=== PATIENT | female | born 1975 | race Caucasian/White ===

== ENCOUNTER 2020-10-09 00:59 | Emergency (ER) | payer OTHER ==
--- NOTE | 2020-10-09 01:27 | ED ---
Chest Pain HPI - General Chief Complaint: Chest Pain Stated Complaint: Chest Tightness/Back Pain Time Seen by Provider: 10/09/20 01:12 Source: patient, family Mode of arrival: ambulatory Limitations: no limitations - History of Present Illness Initial Comments: This patient is a 45-year-old woman who presents to be evaluated for substernal chest pain that woke her from sleep tonight. Patient denies known history of coronary artery/heart disease. She had gone to bed feeling well and then woke up approximately 2 hours ago with substernal chest pain. The symptoms have resolved now. She had not noted any associated symptoms, no dyspnea, diaphoresis, nausea or vomiting, palpitations, lightheadedness or syncope. MD Complaint: chest pain -: hour(s) Onset: awoke with symptoms Pain Location: substernal Pain Radiation: none Quality: tightness Consistency: constant Improves With: nothing Worsens With: nothing Treatments Prior to Arrival: none - Related Data Previous Rx's Medication Instructions Recorded Naproxen Sodium [Anaprox Ds] 550 mg PO Q12HR #20 tab 05/25/14 Allergies Allergy/AdvReac Type Severity Reaction Status Date / Time No Known Allergies Allergy Verified 10/09/20 01:04 Review of Systems ROS Statement: Those systems with pertinent positive or pertinent negative responses have been documented in the HPI. ROS Other: All systems not noted in ROS Statement are negative. Constitutional: Denies: fever, chills Respiratory: Denies: cough, dyspnea Cardiovascular: Reports: chest pain. Denies: palpitations, dyspnea on exertion, orthopnea, edema, syncope Gastrointestinal: Denies: abdominal pain, nausea, vomiting Genitourinary: Denies: dysuria, hematuria Musculoskeletal: Denies: back pain Skin: Denies: rash Neurological: Denies: headache, weakness, numbness EKG Findings - EKG Results: EKG: interpreted by ERMD, sinus rhythm (Rate 98), normal axis, normal ST/T - Blocks, [place], Hypertrophy, ST Abn: AV and intraventricular conduction: left posterior fascicular block Past Medical History Additional Past Medical History / Comment(s): kidney stones, miscarriage, History of Any Multi-Drug Resistant Organisms: None Reported Past Surgical History: No Surgical Hx Reported Additional Past Surgical History / Comment(s): D&C Past Psychological History: No Psychological Hx Reported Smoking Status: Never smoker Past Alcohol Use History: None Reported Past Drug Use History: None Reported General Exam Limitations: no limitations General appearance: alert, in no apparent distress Head exam: Present: atraumatic, normocephalic Eye exam: Present: normal appearance. Absent: scleral icterus, conjunctival injection ENT exam: Present: normal oropharynx Neck exam: Present: normal inspection Respiratory exam: Present: normal lung sounds bilaterally. Absent: respiratory distress, wheezes, rales, rhonchi, stridor Cardiovascular Exam: Present: regular rate, normal rhythm, normal heart sounds. Absent: systolic murmur, diastolic murmur, rubs, gallop GI/Abdominal exam: Present: soft. Absent: distended, tenderness, guarding, rebound, rigid, mass Extremities exam: Present: normal inspection, normal capillary refill. Absent: pedal edema, calf tenderness Back exam: Present: normal inspection. Absent: CVA tenderness (R), CVA tenderness (L) Neurological exam: Present: alert Skin exam: Present: warm, dry, intact, normal color. Absent: rash Course Vital Signs 10/09/20 10/09/20 10/09/20 01:01 01:30 02:30 Temperature 97.7 F Pulse Rate 109 H 97 98 Respiratory 22 16 16 Rate Blood Pressure 163/92 167/92 163/79 O2 Sat by Pulse 97 97 98 Oximetry 10/09/20 03:45 Temperature 98.4 F Pulse Rate 96 Respiratory 16 Rate Blood Pressure 146/89 O2 Sat by Pulse 97 Oximetry Chest Pain MDM - [facility] Patient's 45-year-old woman with atypical chest pain. The workup is normal. Discussed admission for telemetry monitoring, serial cardiac enzymes, cardiology consultation, but this point the patient is feeling better and would like to go home. I discussed appropriate further care and follow-up as well as return parameters. Disposition Clinical Impression: Chest pain Disposition: HOME SELF-CARE Condition: Good Instructions (If sedation given, give patient instructions): Chest Pain (ED) Is patient prescribed a controlled substance at d/c from ED?: No Referrals: Stas Jeffers DO [Primary Care Provider] - 1-2 days
[2020-10-09 02:41] LABS: Basophils # (A) 0.1 k/uL (0-0.2); Basophils % (A) 1 %; Eosinophils # (A) 0.3 k/uL (0-0.7); Eosinophils % (A) 3 %; HCT 40.4 % (34.0-46.0); HGB 14.6 gm/dL (11.4-16.0); Lymphocytes # (A) 2.1 k/uL (1.0-4.8); Lymphocytes % (A) 22 %; MCH 33.2 pg (25.0-35.0); MCHC 36.2 g/dL (31.0-37.0); MCV 91.5 fL (80.0-100.0); Mean Platelet Volume 9.1; Monocytes # (A) 0.4 k/uL (0-1.0); Monocytes % (A) 4 %; Neutrophils # (A) 6.8 k/uL (1.3-7.7); Neutrophils % (A) 69 %; Platelet Count 233 k/uL (150-450); RBC 4.41 m/uL (3.80-5.40); RDW 12.8 % (11.5-15.5); WBC 9.9 k/uL (3.8-10.6)
[2020-10-09 02:50] LABS: ALT 11 U/L (4-34); AST 24 U/L (14-36); African American GFR (CKD) >90 (>60 ml/min/1.73 sqM); Albumin 4.2 g/dL (3.5-5.0); Alkaline Phosphatase 87 U/L (38-126); Amylase 48 U/L (30-110); Anion Gap 10 mmol/L; Blood Urea Nitrogen 14 mg/dL (7-17); Carbon Dioxide 25 mmol/L (22-30); Chloride 104 mmol/L (98-107); Glucose 110 mg/dL (74-99); Lipase 231 U/L (23-300); Magnesium 1.8 mg/dL (1.6-2.3); Non-African American GFR(CKD) >90 (>60 ml/min/1.73 sqM); Potassium 3.8 mmol/L (3.5-5.1); Sodium 139 mmol/L (137-145); Total Bilirubin 0.2 mg/dL (0.2-1.3); Total Protein 6.8 g/dL (6.3-8.2)
--- NOTE | 2020-10-09 02:53 | XR ---
EXAMINATION TYPE: XR chest 2V DATE OF EXAM: 10/09/2020 COMPARISON: NONE HISTORY: Chest pain TECHNIQUE: 2 views FINDINGS: Heart and mediastinum are normal. Lungs are clear. Diaphragm is normal. Bony thorax is inta ct. There are chest leads. IMPRESSION: Normal chest.
[2020-10-09 02:58] LABS: D-Dimer 0.18 mg/L FEU (<0.60); INR 0.9 (<1.2); Prothrombin Time 10.1 sec (9.0-12.0)
[2020-10-09 02:59] LABS: Partial Thromboplastin Time 23.6 sec (22.0-30.0)
[2020-10-09 03:52] VITALS: BP 146/89; PULSE 96; RESP 16; TEMP 98.4
== END 2020-10-09 03:45 | disposition home or self-care (01) ==
LOC: EC 00:59
DX: R07.2 Precordial pain (principal); Z87.442 Personal history of urinary calculi
CPT/HCPCS: 36415; 71046; 80053; 82150; 83690; 83735; 84484; 85025; 85379; 85610; 85730; 93005; 99285

== ENCOUNTER → 2022-11-23 | Outpatient (CLI) | payer OTHER ==
--- NOTE | 2022-11-28 07:58 | MM ---
Reason for Exam: Screening (asymptomatic). Last mammogram was performed 3 year(s) and 11 month(s) ago. Patient History: Menarche at age 14. First Full-Term at age 33. Late child-bearing (after 32). Patient has history of breast feeding. Patient used Hormonal Contraceptives for 2 years. Last menstrual period: 11/08/2022 Risk Values: Jeannette 5 year model risk: 1.1%. NCI Lifetime model risk: 13.0%. Prior Study Comparison: 12/11/2018 Bilateral Screening Mammogram, [facility]. Tissue Density: The breast tissue is heterogeneously dense. This may lower the sensitivity of mammography. Findings: Analyzed By CAD. There is no suspicious group of microcalcifications or new suspicious mass in either breast. Overall Assessment: Benign, BI-RAD 2 Management: Screening Mammogram of both breasts in 1 year. . Patient should continue monthly self-breast exams. A clinical breast exam by your physician is recommended on an annual basis. This exam should not preclude additional follow-up of suspicious palpable abnormalities. Note on Jeannette scores and lifetime risk: 1. A Jeannette score greater than 3% is considered moderate risk. If this is the case, consider specialist referral to assess eligibility for a risk reducing agent. 2. If overall lifetime risk for the development of breast cancer is 20% or higher, the patient may qualify for future screening with alternating mammogram and breast MRI. Electronically signed and approved by: Tutu Howell M.D. Radiologis
== END | disposition home or self-care (01) ==
LOC: RADMAMWWP 13:12
PROVIDERS: ATTEND Family Medicine
DX: Z12.31 Encounter for screening mammogram for malignant neoplasm of breast (principal)
CPT/HCPCS: 77063; 77067

== ENCOUNTER 2023-10-16 14:16 | Emergency (ER) | payer OTHER ==
[2023-10-16 14:22] VITALS: RESP 18
--- NOTE | 2023-10-16 14:44 | ED ---
General Adult HPI - General Source: patient, RN notes reviewed Mode of arrival: wheelchair Limitations: no limitations <Lizbeth Case - Last Filed: 10/16/23 14:42> <Oneal Phelan - Last Filed: 10/16/23 17:51> - General Chief complaint: Recheck/Abnormal Lab/Rx Stated complaint: Dizziness, Left side tingiling/numbness Time Seen by Provider: 10/16/23 14:42 - History of Present Illness Initial comments: Quick Note: This is a 48-year-old female who presents to the emergency department for facial numbness and hypertension. Patient states that her blood pressure was very high this morning so she took an extra dose of losartan. Shortly before arrival she started to notice that the left side of her face felt numb and tingly as did the left side of her arm. She did not notice any weakness, difficulty speaking, or other symptoms associated with the tingling. Denies any history of strokes. (Lizbeth Case) - Related Data Previous Rx's Medication Instructions Recorded Naproxen Sodium [Anaprox Ds] 550 mg PO Q12HR #20 tab 05/25/14 Allergies Allergy/AdvReac Type Severity Reaction Status Date / Time No Known Allergies Allergy Verified 10/16/23 14:22 Review of Systems ROS Other: All systems not noted in ROS Statement are negative. <Lizbeth Case - Last Filed: 10/16/23 14:42> ROS Other: All systems not noted in ROS Statement are negative. <Oneal Phelan - Last Filed: 10/16/23 17:51> ROS Statement: Those systems with pertinent positive or pertinent negative responses have been documented in the HPI. Past Medical History Additional Past Medical History / Comment(s): kidney stones, miscarriage, History of Any Multi-Drug Resistant Organisms: None Reported Past Surgical History: No Surgical Hx Reported Additional Past Surgical History / Comment(s): D&C Past Psychological History: No Psychological Hx Reported Smoking Status: Never smoker Past Alcohol Use History: None Reported Past Drug Use History: None Reported <Lizbeth Case - Last Filed: 10/16/23 14:42> General Exam Limitations: no limitations <Lizbeth Case - Last Filed: 10/16/23 14:42> - General Exam Comments Initial Comments: Visual Physical Exam Vital signs reviewed General: Well-appearing, nontoxic, no acute distress. Head: Normocephalic, atraumatic Eyes: PERRLA, EOMI ENT: Airway patent Chest: Nonlabored breathing Skin: No visual rash, normal skin tone Neuro: Alert and oriented 3 Musculoskeletal: No gross abnormalities (Lizbeth Case) Course Vital Signs 10/16/23 14:20 Temperature 98 F Pulse Rate 101 H Respiratory 18 Rate Blood Pressure 173/108 O2 Sat by Pulse 100 Oximetry Medical Decision Making <Lizbeth Case - Last Filed: 10/16/23 14:42> - Lab Data Result diagrams: 10/16/23 14:48 10/16/23 14:48 <Oneal Phelan - Last Filed: 10/16/23 17:51> - Medical Decision Making I performed the QuickNote portion of this chart. Signed Lizbeth Case PA-C. (Lizbeth Case) - Lab Data Lab Results 10/16/23 10/16/23 10/16/23 Range/Units 14:48 14:48 14:48 WBC 8.7 (3.8-10.6) k/uL RBC 4.14 (3.80-5.40) m/uL Hgb 13.6 (11.4-16.0) gm/dL Hct 40.5 (34.0-46.0) % MCV 97.7 (80.0-100.0) fL MCH 32.7 (25.0-35.0) pg MCHC 33.5 (31.0-37.0) g/dL RDW 13.0 (11.5-15.5) % Plt Count 249 (150-450) k/uL MPV 8.5 Neutrophils % 65 % Lymphocytes % 24 % Monocytes % 4 % Eosinophils % 4 % Basophils % 1 % Neutrophils # 5.7 (1.3-7.7) k/uL Lymphocytes # 2.1 (1.0-4.8) k/uL Monocytes # 0.3 (0-1.0) k/uL Eosinophils # 0.4 (0-0.7) k/uL Basophils # 0.1 (0-0.2) k/uL PT 10.4 (10.0-12.5) sec INR 0.9 (<1.2) APTT 25.5 (22.0-30.0) sec Sodium 138 (137-145) mmol/L Potassium 4.1 (3.5-5.1) mmol/L Chloride 106 (98-107) mmol/L Carbon Dioxide 24 (22-30) mmol/L Anion Gap 8 mmol/L BUN 13 (7-17) mg/dL Creatinine 0.62 (0.52-1.04) mg/dL Est GFR (CKD-EPI)AfAm >90 (>60 ml/min/1.73 sqM) Est GFR (CKD-EPI)NonAf >90 (>60 ml/min/1.73 sqM) Glucose 102 H (74-99) mg/dL Calcium 9.2 (8.4-10.2) mg/dL Total Bilirubin 0.5 (0.2-1.3) mg/dL AST 36 (14-36) U/L ALT 14 (4-34) U/L Alkaline Phosphatase 91 (38-126) U/L Creatine Kinase 102 (30-135) U/L Troponin I (0.000-0.034) ng/mL Total Protein 7.0 (6.3-8.2) g/dL Albumin 4.3 (3.5-5.0) g/dL 10/16/23 Range/Units 14:48 WBC (3.8-10.6) k/uL RBC (3.80-5.40) m/uL Hgb (11.4-16.0) gm/dL Hct (34.0-46.0) % MCV (80.0-100.0) fL MCH (25.0-35.0) pg MCHC (31.0-37.0) g/dL RDW (11.5-15.5) % Plt Count (150-450) k/uL MPV Neutrophils % % Lymphocytes % % Monocytes % % Eosinophils % % Basophils % % Neutrophils # (1.3-7.7) k/uL Lymphocytes # (1.0-4.8) k/uL Monocytes # (0-1.0) k/uL Eosinophils # (0-0.7) k/uL Basophils # (0-0.2) k/uL PT (10.0-12.5) sec INR (<1.2) APTT (22.0-30.0) sec Sodium (137-145) mmol/L Potassium (3.5-5.1) mmol/L Chloride (98-107) mmol/L Carbon Dioxide (22-30) mmol/L Anion Gap mmol/L BUN (7-17) mg/dL Creatinine (0.52-1.04) mg/dL Est GFR (CKD-EPI)AfAm (>60 ml/min/1.73 sqM) Est GFR (CKD-EPI)NonAf (>60 ml/min/1.73 sqM) Glucose (74-99) mg/dL Calcium (8.4-10.2) mg/dL Total Bilirubin (0.2-1.3) mg/dL AST (14-36) U/L ALT (4-34) U/L Alkaline Phosphatase (38-126) U/L Creatine Kinase (30-135) U/L Troponin I <0.012 (0.000-0.034) ng/mL Total Protein (6.3-8.2) g/dL Albumin (3.5-5.0) g/dL Disposition <Lizbeth Case - Last Filed: 10/16/23 14:42> Is patient prescribed a controlled substance at d/c from ED?: No Time of Disposition: 17:50 <Oneal Phelan - Last Filed: 10/16/23 17:51> Clinical Impression: Hypertension, Paresthesia Disposition: HOME SELF-CARE Condition: Good Instructions (If sedation given, give patient instructions): Hypertension (ED) Referrals: Stas Jeffers DO [Primary Care Provider] - 1-2 days
[2023-10-16 15:12] LABS: Basophils # (A) 0.1 k/uL (0-0.2); Basophils % (A) 1 %; Eosinophils # (A) 0.4 k/uL (0-0.7); Eosinophils % (A) 4 %; HCT 40.5 % (34.0-46.0); HGB 13.6 gm/dL (11.4-16.0); Lymphocytes # (A) 2.1 k/uL (1.0-4.8); Lymphocytes % (A) 24 %; MCH 32.7 pg (25.0-35.0); MCHC 33.5 g/dL (31.0-37.0); MCV 97.7 fL (80.0-100.0); Mean Platelet Volume 8.5; Monocytes # (A) 0.3 k/uL (0-1.0); Monocytes % (A) 4 %; Neutrophils # (A) 5.7 k/uL (1.3-7.7); Neutrophils % (A) 65 %; Platelet Count 249 k/uL (150-450); RBC 4.14 m/uL (3.80-5.40); WBC 8.7 k/uL (3.8-10.6)
[2023-10-16 15:19] LABS: INR 0.9 (<1.2); Partial Thromboplastin Time 25.5 sec (22.0-30.0); Prothrombin Time 10.4 sec (10.0-12.5)
[2023-10-16 15:23] LABS: ALT 14 U/L (4-34); AST 36 U/L (14-36); African American GFR (CKD) >90 (>60 ml/min/1.73 sqM); Albumin 4.3 g/dL (3.5-5.0); Alkaline Phosphatase 91 U/L (38-126); Anion Gap 8 mmol/L; Blood Urea Nitrogen 13 mg/dL (7-17); Calcium 9.2 mg/dL (8.4-10.2); Carbon Dioxide 24 mmol/L (22-30); Chloride 106 mmol/L (98-107); Creatine Kinase 102 U/L (30-135); Glucose 102 mg/dL (74-99); Non-African American GFR(CKD) >90 (>60 ml/min/1.73 sqM); Potassium 4.1 mmol/L (3.5-5.1); Sodium 138 mmol/L (137-145); Total Bilirubin 0.5 mg/dL (0.2-1.3)
--- NOTE | 2023-10-16 15:43 | XR ---
EXAMINATION TYPE: XR chest 2V DATE OF EXAM: 10/16/2023 COMPARISON: 10/09/2020 INDICATION: Altered mental status left-sided tingling TECHNIQUE: Frontal and lateral views of the chest are obtained. FINDINGS: The heart size is normal. The pulmonary vasculature is normal. The lungs are clear. IMPRESSION: 1. No acute pulmonary process.
--- NOTE | 2023-10-16 15:58 | CT ---
EXAMINATION TYPE: CT brain wo con CT DLP: 1164.4 mGycm, Automated exposure control for dose reduction was used. DATE OF EXAM: 10/16/2023 3:48 PM COMPARISON: None. CLINICAL INDICATION:Female, 48 years old with history of Facial numbness, Facial numbness and high bl ood pressure TECHNIQUE: Brain: Axial CT images of the brain were obtained with coronal and sagittal reformats created and rev iewed. Contrast used: None. Oral contrast used: None. FINDINGS: Brain: Extra-axial spaces: No abnormal extra-axial fluid collections. Ventricular system: Within normal limits Cerebral parenchyma: No acute intraparenchymal hemorrhage or mass effect. The madison-white junction is well differentiated. Cerebellum: Unremarkable. Mass effect: No evidence of midline shift. Intracranial vasculature: unremarkable Soft tissues: Normal. Calvarium/osseous structures: No depressed skull fracture. Paranasal sinuses and mastoid air cells: Mild scattered paranasal sinus disease. Visualized orbits: Orbital contents are intact. IMPRESSION: No acute intracranial process.
[2023-10-16] MEDS: cloNIDine HCL 0.1 MG TAB PO STA (18:16)
[2023-10-16] MEDS: amLODIPine 5 MG TAB PO STA (18:16)
[2023-10-16 18:18] VITALS: BP 153/91; PULSE 88; TEMP 98.1
== END 2023-10-16 18:20 | disposition home or self-care (01) ==
LOC: EC 14:16
DX: R20.2 Paresthesia of skin (principal); I10 Essential (primary) hypertension
CPT/HCPCS: 36415; 70450; 71046; 80053; 82550; 84484; 85025; 85610; 85730; 93005; 99284

== ENCOUNTER → 2023-11-02 | Outpatient (CLI) | payer OTHER ==
--- NOTE | 2023-11-02 16:29 | US ---
EXAMINATION TYPE: US transvaginal DATE OF EXAM: 11/02/2023 COMPARISON: NONE CLINICAL INDICATION: Female, 48 years old with history of N94.6 DYSMENORRHEA; Irregular menses. TECHNIQUE: Transvaginal (TV) Date of LMP: 10/13/2023 EXAM MEASUREMENTS: Uterus: 10.0 x 6.5 x 5.6 cm Endometrial Stripe: 2.1 cm Right Ovary: 6.4 x 4.9 x 4.6 cm Left Ovary: 4.1 x 3.4 x 3.1 cm 1. Uterus: Anteverted Upper limits of normal in size. Heterogenous. Two right hypoechoic lesions , 1- 1.3 x 1.3 x 1.5 cm and 2- 1.5 x 1.3 x 1.2 cm 2. Endometrium: Thickened. Heterogenous. 3. Right Ovary: Simple cyst - 5.6 x 4.5 x 4.1 cm 4. Left Ovary: Simple cyst - 2.8 x 2.0 x 2.8 cm 5. Bilateral Adnexa: no free fluid 6. Posterior cul-de-sac: no free fluid Anteverted uterus with heterogenous appearance. There are 2 right hypoechoic lesions most consistent with intramural fibroids. Heterogenous thickened endometrium identified without internal color flow. Bilateral ovarian simple cysts identified. Largest is in the right ovary measured 5.6 cm. No free flu id. IMPRESSION: 1. Thickened endometrium. Etiologies include endometrial hyperplasia versus carcinoma versus polyp ve rsus fibroid versus other. Direct visualization is recommended. 2. Fibroid changes of the uterus. 3. Bilateral simple ovarian cysts with largest in the right ovary measuring up to 5.6 cm.
== END | disposition home or self-care (01) ==
LOC: RADUSWWP 15:07
PROVIDERS: ATTEND Family Medicine
DX: N94.6 Dysmenorrhea, unspecified (principal); R93.89 Abnormal findings on diagnostic imaging of other specified body structures; D25.9 Leiomyoma of uterus, unspecified; N83.201 Unspecified ovarian cyst, right side; N83.202 Unspecified ovarian cyst, left side
CPT/HCPCS: 76830

== ENCOUNTER → 2023-11-20 | Outpatient (CLI) | payer OTHER | END | disposition home or self-care (01) | LOC: LABPRL 09:55 | PROVIDERS: ATTEND Family Medicine | DX: Z00.00 Encounter for general adult medical examination without abnormal findings (principal); I10 Essential (primary) hypertension; E55.9 Vitamin D deficiency, unspecified | CPT/HCPCS: 80053; 80061; 82306; 83036; 84439; 84443; 85025 ==

== ENCOUNTER 2023-12-04 10:37 | Emergency (ER) | payer OTHER ==
[2023-12-04 10:41] VITALS: TEMP 98
--- NOTE | 2023-12-04 11:07 | ED ---
Female Urogenital HPI - General Chief complaint: Vaginal Bleeding Stated complaint: Vaginal bleeding Time Seen by Provider: 12/04/23 11:04 Source: patient, RN notes reviewed Mode of arrival: ambulatory Limitations: no limitations - History of Present Illness Initial comments: 48-year-old female presenting with vaginal bleeding x 1 day. States she has had issues with heavy vaginal bleeding on menstrual cycle for several months. She had an ultrasound of the pelvis last month which revealed a thickened uterine lining. She has upcoming appointment with PROJECT COORDINATOR in December for D&C. States she had similar issues 2 years ago and had D&C done at this time. Denies blood thinners. Admits some mild abdominal cramping, denies any other symptoms such a s lightheadedness, nausea, vomiting, fever. - Related Data Previous Rx's Medication Instructions Recorded Naproxen Sodium [Anaprox Ds] 550 mg PO Q12HR #20 tab 05/25/14 amLODIPine [Norvasc] 5 mg PO DAILY #30 tab 10/16/23 Allergies Allergy/AdvReac Type Severity Reaction Status Date / Time No Known Allergies Allergy Verified 12/04/23 10:41 Review of Systems ROS Statement: Those systems with pertinent positive or pertinent negative responses have been documented in the HPI. ROS Other: All systems not noted in ROS Statement are negative. Past Medical History Additional Past Medical History / Comment(s): kidney stones, miscarriage, History of Any Multi-Drug Resistant Organisms: None Reported Past Surgical History: No Surgical Hx Reported Additional Past Surgical History / Comment(s): D&C Past Psychological History: No Psychological Hx Reported Smoking Status: Never smoker Past Alcohol Use History: None Reported Past Drug Use History: None Reported General Exam Limitations: no limitations General appearance: alert, in no apparent distress Head exam: Present: atraumatic, normocephalic, normal inspection Eye exam: Present: normal appearance, PERRL, EOMI, other (No pallor). Absent: scleral icterus, conjunctival injection, periorbital swelling Respiratory exam: Present: normal lung sounds bilaterally. Absent: respiratory distress, wheezes, rales, rhonchi, stridor Cardiovascular Exam: Present: regular rate, normal rhythm, normal heart sounds. Absent: systolic murmur, diastolic murmur, rubs, gallop, clicks GI/Abdominal exam: Present: soft, normal bowel sounds. Absent: distended, tenderness, guarding, rebound, rigid Extremities exam: Present: normal inspection, full ROM, normal capillary refill. Absent: tenderness, pedal edema, joint swelling, calf tenderness Neurological exam: Present: alert, oriented X3 Psychiatric exam: Present: normal affect, normal mood Skin exam: Present: warm, dry, intact, normal color. Absent: rash Course Vital Signs 12/04/23 12/04/23 10:38 12:14 Temperature 98 F Pulse Rate 131 H 96 Respiratory 18 16 Rate Blood Pressure 173/109 128/78 O2 Sat by Pulse 100 97 Oximetry Medical Decision Making - Medical Decision Making Was pt. sent in by a medical professional or institution (, PA, SCIENCE CONSULTANT, urgent care, hospital, or [facility]...) When possible be specific @ -No Did you speak to anyone other than the patient for history (EMS, parent, family, police, friend...)? What history was obtained from this source @ -No Did you review nursing and triage notes (agree or disagree)? Why? @ -I reviewed and agree with nursing and triage notes Were old charts reviewed (outside hosp., previous admission, EMS record, old EKG, old radiological studies, urgent care reports/EKG's, [facility] records)? Report findings @ -No old charts were reviewed Differential Diagnosis (chest pain, altered mental status, abdominal pain women, abdominal pain men, vaginal bleeding, weakness, fever, dyspnea, syncope, headache, dizziness, GI bleed, back pain, seizure, CVA, palpatations, mental health, musculoskeletal)? @ -Differential Vaginal Bleeding: Spontaneous , threatened , molar , ectopic , bloody show, incompetent cervix, abruptioplacenta, placenta previa, uterine rupture, dysfunctional uterine bleeding, hemorrhage, uterine fib roids, this is not meant to be an all-inclusive list. EKG interpreted by me (3pts min.). @ -None X-rays interpreted by me (1pt min.). @ -None done CT interpreted by me (1pt min.). @ -None done U/S interpreted by me (1pt. min.). @ -None done What testing was considered but not performed or refused? (CT, X-rays, U/S, labs)? Why? @ -Pelvic ultrasound not performed due to patient had pelvic ultrasound 1 month ago which revealed thickened endometrium What meds were considered but not given or refused? Why? @ -None Did you discuss the management of the patient with other professionals (professionals i.e. , PA, SCIENCE CONSULTANT, lab, RT, psych nurse, social welfare administrator, track coach, teacher, correction officer city or county jail, supportive employment case manager)? Give summary @ -No Was smoking cessation discussed for >3mins.? @ -No Was critical care preformed (if so, how long)? @ -No Were there social determinants of health that impacted care today? How? (Homelessness, low income, unemployed, alcoholism, drug addiction, transportation, low edu. Level, literacy, decrease access to med. care, long-term, rehab)? @ -No Was there de-escalation of care discussed even if they declined (Discuss DNR or withdrawal of care, Hospice)? DNR status @ -No What co-morbidities impacted this encounter? (DM, HTN, Smoking, COPD, CAD, Cancer, CVA, ARF, Chemo, Hep., AIDS, mental health diagnosis, sleep apnea, morbid obesity)? @ -None Was patient admitted / discharged? Hospital course, mention meds given and route, prescriptions, significant lab abnormalities, going to OR and other pertinent info. @ -Patient was discharged. Patient was seen and evaluated for vaginal bleeding x 1 day. Patient had pelvic ultrasound 1 month ago which revealed thickened endometrium, patient is scheduled for D&C next month. Patient is mildly tachycardic upon initial evaluation, however resolves upon reevaluatio. No acute distress. No abdominal tenderness to palpation. Hemoglobin is stable at 11.4. Urine negative. Discussed diagnosis of menorrhagia due to thickened endometrium. Discussed there are no signs of hemodynamic instability at this time, therefore I believe it is reasonable for patient to be discharged at this time with outpatient follow-up. Patient is agreeable to plan. Return parameters discussed. This was discussed with my ED attending Dr. Woodall. Undiagnosed new problem with uncertain prognosis? @ -No Drug Therapy requiring intensive monitoring for toxicity (Heparin, Nitro, Insulin, Cardizem)? @ -No Were any procedures done? @ -No Diagnosis/symptom? @ -Menorrhagia Acute, or Chronic, or Acute on Chronic? @ -Acute Uncomplicated (without systemic symptoms) or Complicated (systemic symptoms)? @ -Uncomplicated Side effects of treatment? @ -No Exacerbation, Progression, or Severe Exacerbation? @ -No Poses a threat to life or bodily function? How? (Chest pain, [place], [place], pneumonia, PE, COPD, DKA, ARF, appy, cholecystitis, CVA, Diverticulitis, Homicidal, Suicidal, threat to staff... and all critical care pts) @ -Not at this time - Lab Data Result diagrams: 12/04/23 11:11 12/04/23 11:11 Lab Results 12/04/23 12/04/23 12/04/23 Range/Units 11:11 11:11 11:11 WBC 9.4 (3.8-10.6) k/uL RBC 3.47 L (3.80-5.40) m/uL Hgb 11.4 (11.4-16.0) gm/dL Hct 33.2 L (34.0-46.0) % MCV 95.8 (80.0-100.0) fL MCH 32.9 (25.0-35.0) pg MCHC 34.4 (31.0-37.0) g/dL RDW 12.9 (11.5-15.5) % Plt Count 318 (150-450) k/uL MPV 8.3 Neutrophils % 72 % Lymphocytes % 21 % Monocytes % 3 % Eosinophils % 2 % Basophils % 0 % Neutrophils # 6.8 (1.3-7.7) k/uL Lymphocytes # 2.0 (1.0-4.8) k/uL Monocytes # 0.3 (0-1.0) k/uL Eosinophils # 0.2 (0-0.7) k/uL Basophils # 0.0 (0-0.2) k/uL PT (10.0-12.5) sec INR (<1.2) Sodium 139 (137-145) mmol/L Potassium 4.0 (3.5-5.1) mmol/L Chloride 106 (98-107) mmol/L Carbon Dioxide 24 (22-30) mmol/L Anion Gap 9 mmol/L BUN 13 (7-17) mg/dL Creatinine 0.75 (0.52-1.04) mg/dL Est GFR (CKD-EPI)AfAm >90 (>60 ml/min/1.73 sqM) Est GFR (CKD-EPI)NonAf >90 (>60 ml/min/1.73 sqM) Glucose 161 H (74-99) mg/dL Calcium 9.4 (8.4-10.2) mg/dL Total Bilirubin 0.4 (0.2-1.3) mg/dL AST 28 (14-36) U/L ALT 14 (4-34) U/L Alkaline Phosphatase 86 (38-126) U/L Total Protein 7.6 (6.3-8.2) g/dL Albumin 4.6 (3.5-5.0) g/dL Urine HCG, Qual Not Detected (Not Detectd) 12/04/23 Range/Units 11:11 WBC (3.8-10.6) k/uL RBC (3.80-5.40) m/uL Hgb (11.4-16.0) gm/dL Hct (34.0-46.0) % MCV (80.0-100.0) fL MCH (25.0-35.0) pg MCHC (31.0-37.0) g/dL RDW (11.5-15.5) % Plt Count (150-450) k/uL MPV Neutrophils % % Lymphocytes % % Monocytes % % Eosinophils % % Basophils % % Neutrophils # (1.3-7.7) k/uL Lymphocytes # (1.0-4.8) k/uL Monocytes # (0-1.0) k/uL Eosinophils # (0-0.7) k/uL Basophils # (0-0.2) k/uL PT 10.3 (10.0-12.5) sec INR 0.9 (<1.2) Sodium (137-145) mmol/L Potassium (3.5-5.1) mmol/L Chloride (98-107) mmol/L Carbon Dioxide (22-30) mmol/L Anion Gap mmol/L BUN (7-17) mg/dL Creatinine (0.52-1.04) mg/dL Est GFR (CKD-EPI)AfAm (>60 ml/min/1.73 sqM) Est GFR (CKD-EPI)NonAf (>60 ml/min/1.73 sqM) Glucose (74-99) mg/dL Calcium (8.4-10.2) mg/dL Total Bilirubin (0.2-1.3) mg/dL AST (14-36) U/L ALT (4-34) U/L Alkaline Phosphatase (38-126) U/L Total Protein (6.3-8.2) g/dL Albumin (3.5-5.0) g/dL Urine HCG, Qual (Not Detectd) Disposition Clinical Impression: Menorrhagia Disposition: HOME SELF-CARE Condition: Stable Instructions (If sedation given, give patient instructions): Menorrhagia (ED) Additional Instructions: Follow-up with your OB as discussed. Please return to the Emergency Department if symptoms worsen or any other concerns. Is patient prescribed a controlled substance at d/c from ED?: No Referrals: Stas Jeffers DO [Primary Care Provider] - 1-2 days Time of Disposition: 12:22
[2023-12-04 11:26] LABS: Basophils % (A) 0 %; Eosinophils # (A) 0.2 k/uL (0-0.7); Eosinophils % (A) 2 %; HCT 33.2 % (34.0-46.0); HGB 11.4 gm/dL (11.4-16.0); Lymphocytes % (A) 21 %; MCH 32.9 pg (25.0-35.0); MCHC 34.4 g/dL (31.0-37.0); MCV 95.8 fL (80.0-100.0); Mean Platelet Volume 8.3; Monocytes # (A) 0.3 k/uL (0-1.0); Monocytes % (A) 3 %; Neutrophils # (A) 6.8 k/uL (1.3-7.7); Neutrophils % (A) 72 %; Platelet Count 318 k/uL (150-450); RBC 3.47 m/uL (3.80-5.40); RDW 12.9 % (11.5-15.5); WBC 9.4 k/uL (3.8-10.6)
[2023-12-04 11:36] LABS: INR 0.9 (<1.2); Prothrombin Time 10.3 sec (10.0-12.5)
[2023-12-04 11:38] LABS: ALT 14 U/L (4-34); AST 28 U/L (14-36); African American GFR (CKD) >90 (>60 ml/min/1.73 sqM); Albumin 4.6 g/dL (3.5-5.0); Alkaline Phosphatase 86 U/L (38-126); Anion Gap 9 mmol/L; Blood Urea Nitrogen 13 mg/dL (7-17); Calcium 9.4 mg/dL (8.4-10.2); Carbon Dioxide 24 mmol/L (22-30); Chloride 106 mmol/L (98-107); Glucose 161 mg/dL (74-99); Non-African American GFR(CKD) >90 (>60 ml/min/1.73 sqM); Sodium 139 mmol/L (137-145); Total Bilirubin 0.4 mg/dL (0.2-1.3); Total Protein 7.6 g/dL (6.3-8.2)
[2023-12-04 12:15] VITALS: BP 128/78; PULSE 96; RESP 16
== END 2023-12-04 12:54 | disposition home or self-care (01) ==
LOC: EC 10:37
DX: N92.0 Excessive and frequent menstruation with regular cycle (principal)
CPT/HCPCS: 36415; 80053; 81025; 85025; 85610; 99284